=== PATIENT | female | born 1980 | race American Indian/Alaskan Native ===

== ENCOUNTER 2019-02-25 00:44 | Emergency (ER) | payer OTHER ==
[2019-02-25] MEDS ORDERED: ASPIRIN PO ONE (01:00)
[2019-02-25] MEDS ORDERED: NORCO 5/325 PO ONE (01:11)
[2019-02-25] MEDS ORDERED: TORADOL IV ONE (01:11)
--- NOTE | 2019-02-25 01:34 | XRay Report ---
PROCEDURE: XR CHEST 1V AP TECHNIQUE: A portable upright view the chest was obtained. HISTORY: Chest Pain COMPARISONS: None FINDINGS: The heart size and mediastinum appear normal. The lungs are clear. The bones and soft tissues do not show any acute changes. IMPRESSION: No acute cardiopulmonary process.. This document is electronically signed by Shay Rojas MD., February 25 2019 01:32:50 AM ET
[2019-02-25 01:36] LABS: Basophils % (Auto) 0.2 % (0.0-1.8); Eosinophils # (Auto) 0.1 K/mm3 (0.0-0.4); Eosinophils % (Auto) 0.5 % (0.0-4.3); Hematocrit 29.7 % (30.3-42.9); Hemoglobin 9.4 gm/dl (10.1-14.3); Lymphocytes # (Auto) 1.4 K/mm3 (1.2-5.4); Lymphocytes % (Auto) 12.8 % (13.4-35.0); Mean Corpuscular HGB Conc 32 % (30-34); Monocytes # (Auto) 0.5 K/mm3 (0.0-0.8); Monocytes % (Auto) 4.2 % (0.0-7.3); Platelet Count 433 K/mm3 (140-440); Red Blood Count 4.66 M/mm3 (3.65-5.03)
--- NOTE | 2019-02-25 01:36 | Emergency Department Report ---
ED Chest Pain HPI - General Chief Complaint: Chest Pain Stated Complaint: CP Time Seen by Provider: 02/25/19 01:01 Source: EMS Mode of arrival: Stretcher Limitations: No Limitations - History of Present Illness Initial Comments: 38-year-old female with a past medical history of iron deficency anxiety and obesity complaining of chest pain after eating dinner. She complains of substernal chest pain described as sharp, constant, worse with palpation, mov ement, and deep inspiration. Mild shortness of breath related to pain with inspiration. Patient initially thought it was gas but today gas ex without improvement. Symptoms as she worsened after taking medications. In route to the hospital EMS provided aspirin and nitroglycerin. Patient reports her pain decreased from a 10-8. She denies history of PEs and DVT, recent travel, calf tenderness, leg edema, or history of control use. She also denies recent cough or cold symptoms. LMP was one month ago and her menses is due in the next several days. Patient does not have a primary care doctor Severity scale (0 -10): 0 - Related Data Previous Rx's Medication Instructions Recorded Last Taken Type Acetaminophen/Codeine [Tylenol #3] 1 tab PO Q6H PRN #20 tab 05/16/15 Unknown Rx Doxycycline [Vibramycin CAP] 100 mg PO BID #20 capsule 05/16/15 Unknown Rx Ibuprofen [Motrin] 600 mg PO Q8H PRN #50 tablet 05/16/15 Unknown Rx metroNIDAZOLE [Flagyl] 500 mg PO BID #20 tablet 05/16/15 Unknown Rx Docusate Sodium [Colace] 100 mg PO BID PRN #20 capsule 02/25/19 Unknown Rx Ferrous Sulfate [Ferrous Sulfate 324 mg PO DAILY #30 tablet.dr 02/25/19 Unknown Rx 324 MG] Ibuprofen [Motrin] 800 mg PO Q8HR PRN #60 tablet 02/25/19 Unknown Rx traMADol [Ultram 50 MG tab] 50 mg PO Q6HR PRN #20 tablet 02/25/19 Unknown Rx Allergies Allergy/AdvReac Type Severity Reaction Status Date / Time No Known Allergies Allergy Unverified 05/15/15 19:51 Heart Score - HEART Score History: Slightly suspicious EKG: Normal Age: < 45 Risk factors: 1-2 risk factors Troponin: < normal limit HEART Score: 1 ED Review of Systems ROS: Stated complaint: CP Other details as noted in HPI Comment: All other systems reviewed and negative ED Past Medical Hx - Past Medical History Previous Medical History?: Yes Hx Psychiatric Treatment: Yes (anxiety) - Surgical History Past Surgical History?: Yes Additional Surgical History: 2016 L Femur fracture - Social History Smoking Status: Never Smoker Substance Use Type: None - Medications Home Medications: Home Medications Medication Instructions Recorded Confirmed Last Taken Type Acetaminophen/Codeine [Tylenol #3] 1 tab PO Q6H PRN #20 tab 05/16/15 Unknown Rx Doxycycline [Vibramycin CAP] 100 mg PO BID #20 capsule 05/16/15 Unknown Rx Ibuprofen [Motrin] 600 mg PO Q8H PRN #50 tablet 05/16/15 Unknown Rx metroNIDAZOLE [Flagyl] 500 mg PO BID #20 tablet 05/16/15 Unknown Rx Docusate Sodium [Colace] 100 mg PO BID PRN #20 capsule 02/25/19 Unknown Rx Ferrous Sulfate [Ferrous Sulfate 324 mg PO DAILY #30 tablet.dr 02/25/19 Unknown Rx 324 MG] Ibuprofen [Motrin] 800 mg PO Q8HR PRN #60 tablet 02/25/19 Unknown Rx traMADol [Ultram 50 MG tab] 50 mg PO Q6HR PRN #20 tablet 02/25/19 Unknown Rx ED Physical Exam - General Limitations: No Limitations - Other Other exam information: General: No limitations, patient is alert in no acute distress Head exam: Atraumatic, normocephalic Eyes exam: Normal appearance ENT: Moist mucous membrane, normal oropharynx Neck exam: Normal inspection, full range of motion, no meningismus nontender Respiratory exam: Clear to auscultation bilateral, no wheezes, rales, crackles Cardiovascular: Normal rate and rhythm, normal heart sounds. Reproducible sternal chest wall tenderness Abdomen: Soft, nondistended, and nontender, with normal bowel sounds, no re bound, or guarding Extremity: Full range of motion normal inspection no deformity, no calf tenderness or edema Back: Normal Inspection, full range of motion, no tenderness Neurologic: Alert, oriented x3, cranial nerves intact, no motor or sensory deficit Psychiatric: normal affect, normal mood Skin: Warm, dry, intact ED Course Vital Signs 02/25/19 02/25/19 00:58 01:00 Temperature 98.3 F Pulse Rate 88 Respiratory 26 H 25 H Rate Blood Pressure 141/61 [Left] O2 Sat by Pulse 96 96 Oximetry ED Medical Decision Making - Lab Data Result diagrams: 02/25/19 01:15 02/25/19 01:15 Lab Results 02/25/19 02/25/19 02/25/19 Range/Units 01:15 01:15 01:15 WBC 10.6 (4.5-11.0) K/mm3 RBC 4.66 (3.65-5.03) M/mm3 Hgb 9.4 L (10.1-14.3) gm/dl Hct 29.7 L (30.3-42.9) % MCV 64 L (79-97) fl MCH 20 L (28-32) pg MCHC 32 (30-34) % RDW 20.1 H (13.2-15.2) % Plt Count 433 (140-440) K/mm3 Lymph % (Auto) 12.8 L (13.4-35.0) % [place] % (Auto) 4.2 (0.0-7.3) % Eos % (Auto) 0.5 (0.0-4.3) % Baso % (Auto) 0.2 (0.0-1.8) % Lymph # 1.4 (1.2-5.4) K/mm3 [place] # 0.5 (0.0-0.8) K/mm3 Eos # 0.1 (0.0-0.4) K/mm3 Baso # 0.0 (0.0-0.1) K/mm3 Seg Neutrophils % 82.3 H (40.0-70.0) % Seg Neutrophils # 8.7 H (1.8-7.7) K/mm3 D-Dimer 447.59 H (0-234) ng/mlDDU Sodium 138 (137-145) mmol/L Potassium 4.0 (3.6-5.0) mmol/L Chloride 103.4 (98-107) mmol/L Carbon Dioxide 22 (22-30) mmol/L Anion Gap 17 mmol/L BUN 14 (7-17) mg/dL Creatinine 0.9 (0.7-1.2) mg/dL Estimated GFR > 60 ml/min BUN/Creatinine Ratio 16 % Glucose 140 H (65-100) mg/dL Calcium 8.3 L (8.4-10.2) mg/dL Troponin T < 0.010 (0.00-0.029) ng/mL HCG, Qual (Negative) 02/25/19 02/25/19 Range/Units 01:15 03:56 WBC (4.5-11.0) K/mm3 RBC (3.65-5.03) M/mm3 Hgb (10.1-14.3) gm/dl Hct (30.3-42.9) % MCV (79-97) fl MCH (28-32) pg MCHC (30-34) % RDW (13.2-15.2) % Plt Count (140-440) K/mm3 Lymph % (Auto) (13.4-35.0) % [place] % (Auto) (0.0-7.3) % Eos % (Auto) (0.0-4.3) % Baso % (Auto) (0.0-1.8) % Lymph # (1.2-5.4) K/mm3 [place] # (0.0-0.8) K/mm3 Eos # (0.0-0.4) K/mm3 Baso # (0.0-0.1) K/mm3 Seg Neutrophils % (40.0-70.0) % Seg Neutrophils # (1.8-7.7) K/mm3 D-Dimer (0-234) ng/mlDDU Sodium (137-145) mmol/L Potassium (3.6-5.0) mmol/L Chloride (98-107) mmol/L Carbon Dioxide (22-30) mmol/L Anion Gap mmol/L BUN (7-17) mg/dL Creatinine (0.7-1.2) mg/dL Estimated GFR ml/min BUN/Creatinine Ratio % Glucose (65-100) mg/dL Calcium (8.4-10.2) mg/dL Troponin T < 0.010 (0.00-0.029) ng/mL HCG, Qual Negative (Negative) - EKG Data -: EKG Interpreted by Me EKG shows normal: sinus rhythm, axis (qrs 29), QRS complexes (qrsd 86), ST-T waves (no stemi/t inv) Rate: normal (82) - EKG Data When compared to previous EKG there are: previous EKG unavailable - Radiology Data Radiology results: report reviewed pcxr: naf PROCEDURE: CT ANGIO CHEST TECHNIQUE: CT imaging is obtained through the chest in pulmonary angiographic phase following intravenous administration of contrast. Transaxial, coronal and sagittal reformations are provided with maximal intensity projection. HISTORY: cp, elevated ddimer COMPARISONS: 02/25/2019 FINDINGS: Normal caliber main pulmonary artery. Well opacified pulmonary arterial tree. No pulmonary embolism. No pericardial effusion. Thoracic aorta is normal in course and caliber. No periaortic fluid or stranding. No pneumothorax, effusion or focal airspace disease. The central airways are patent. No bronchiectasis. Imaged portion of the upper abdomen is remarkable for a 3 cm gallstone. The superficial soft tissues are unremarkable. No acute bony abnormality or worrisome osseous lesions identified. IMPRESSION: No pulmonary embolism or other acute finding. Cholelithiasis measuring up to 3 cm. Consider follow-up ultrasound as warranted. This document is electronically signed by Alonso Valderrama MD., February 25 2019 04:27:40 AM ET - Medical Decision Making Patient has reproducible sternal tenderness. Is I'm negative 2, EKG normal, CT angios chest negative for pulmonary embolism.. Improvement after [place] and Toradol. Outpatient follow-up will be advised. - Differential Diagnosis costochondritis, pneumothorax, pulmonary embolism, [place] Critical Care Time: No Critical care attestation.: If time is entered above; I have spent that time in minutes in the direct care of this critically ill patient, excluding procedure time. ED Disposition Clinical Impression: Costochondritis, acute, Iron deficiency anemia Disposition: DC-01 TO HOME OR SELFCARE Is pt being admited?: No Does the pt Need Aspirin: No Condition: Stable Instructions: Costochondritis (ED), Iron Deficiency Anemia (ED) Additional Instructions: Take the medication as prescribed. Follow up with your doctor or the clinic/doctor provided. Return if symptoms worsen as indicated by your disch arge instructions Prescriptions: Docusate Sodium [Colace] 100 mg PO BID PRN #20 capsule PRN Reason: Constipation Ferrous Sulfate [Ferrous Sulfate 324 MG] 324 mg PO DAILY #30 tablet. Ibuprofen [Motrin] 800 mg PO Q8HR PRN #60 tablet PRN Reason: Pain, Moderate (4-6) traMADol [Ultram 50 MG tab] 50 mg PO Q6HR PRN #20 tablet PRN Reason: Pain Referrals: [facility] [Provider Group] - 3-5 Days ORESTES BAUMAN MD [Staff Physician] - 3-5 Days Time of Disposition: 04:45
[2019-02-25 01:39] LABS: Mean Corpuscular Volume 64 fl (79-97)
[2019-02-25 01:40] LABS: Red Cell Distribution Width 20.1 % (13.2-15.2)
[2019-02-25 01:51] LABS: BUN/Creatinine Ratio 16; Blood Urea Nitrogen 14 mg/dL (7-17); Calcium 8.3 mg/dL (8.4-10.2); Hemolysis Index 0
--- NOTE | 2019-02-25 04:29 | Cat Scan Report ---
PROCEDURE: CT ANGIO CHEST TECHNIQUE: CT imaging is obtained through the chest in pulmonary angiographic phase following intrav enous administration of contrast. Transaxial, coronal and sagittal reformations are provided with max imal intensity projection. HISTORY: cp, elevated ddimer COMPARISONS: 02/25/2019 FINDINGS: Normal caliber main pulmonary artery. Well opacified pulmonary arterial tree. No pulmonary embolism . No pericardial effusion. Thoracic aorta is normal in course and caliber. No periaortic fluid or stranding. No pneumothorax, effusion or focal airspace disease. The central airways are patent. No bronchiectasi s. Imaged portion of the upper abdomen is remarkable for a 3 cm gallstone. The superficial soft tissues are unremarkable. No acute bony abnormality or worrisome osseous lesions identified. IMPRESSION: No pulmonary embolism or other acute finding. Cholelithiasis measuring up to 3 cm. Consider follow-up ultrasound as warranted. This document is electronically signed by Alonso Valderrama MD., February 25 2019 04:27:40 AM ET
[2019-02-25 20:02] VITALS: BP 123/70
== END 2019-02-25 05:32 | disposition home or self-care (01) ==
LOC: ED 00:44
DX: M94.0 Chondrocostal junction syndrome [Tietze] (principal); D50.9 Iron deficiency anemia, unspecified; F41.9 Anxiety disorder, unspecified
CPT/HCPCS: 36415; 71045; 71275; 80048; 84484; 84703; 85025; 85379; 93005; 93010; 99285; J1885; Q9967

== ENCOUNTER 2019-03-26 21:01 | Emergency (ER) | payer OTHER ==
--- NOTE | 2019-03-26 21:53 | Emergency Department Report ---
Blank Doc - Documentation Documentation: This is a 38-year-old female that presents with chest pain. Denies any radiat ion. This initial assessment/diagnostic orders/clinical plan/treatment(s) is/are subject to change based on patient's health status, clinical progression and re- assessment by fellow clinical providers in the ED. Further treatment and workup at subsequent clinical providers discretion. Patient/guardians urged not to elope from the ED as their condition may be serious if not clinically assessed and managed. Initial orders include: 1- Patient sent to [facility] for further evaluation and treatment 2- labs 3- EKG 4- CXR
[2019-03-26 22:12] VITALS: BP 153/97
[2019-03-26 22:33] LABS: Basophils % (Auto) 0.1 % (0.0-1.8); Eosinophils # (Auto) 0.1 K/mm3 (0.0-0.4); Eosinophils % (Auto) 0.8 % (0.0-4.3); Hematocrit 29.7 % (30.3-42.9); Hemoglobin 9.9 gm/dl (10.1-14.3); Lymphocytes # (Auto) 2.1 K/mm3 (1.2-5.4); Lymphocytes % (Auto) 20.3 % (13.4-35.0); Mean Corpuscular HGB Conc 33 % (30-34); Monocytes # (Auto) 0.4 K/mm3 (0.0-0.8); Monocytes % (Auto) 3.6 % (0.0-7.3); Platelet Count 496 K/mm3 (140-440); Red Blood Count 4.75 M/mm3 (3.65-5.03); Red Cell Distribution Width 19.5 % (13.2-15.2)
[2019-03-26 22:34] LABS: Mean Corpuscular Volume 62 fl (79-97)
[2019-03-26 22:44] LABS: INR 0.96 (0.87-1.13)
[2019-03-26 22:45] LABS: Partial Thromboplastin Time 28.2 Sec. (24.2-36.6)
[2019-03-26 22:54] LABS: BUN/Creatinine Ratio 16; Blood Urea Nitrogen 13 mg/dL (7-17); Calcium 8.5 mg/dL (8.4-10.2); Hemolysis Index 0
== END 2019-03-26 22:55 | disposition left against medical advice (07) ==
LOC: ED 21:01
DX: R07.89 Other chest pain (principal); Z53.21 Procedure and treatment not carried out due to patient leaving prior to being seen by health care provider
CPT/HCPCS: 36415; 80048; 84484; 84703; 85025; 85610; 85730; 93005; 93010